=== PATIENT | female | born 1990 | race Caucasian/White ===

== ENCOUNTER 2020-07-31 10:21 | Outpatient (CLI) | payer OTHER, SELFPAY ==
--- NOTE | ~2020-07-31 | MR_ITS ---
EXAMINATION: MR brain/brain stem wo/w con DATE: 07/31/2020 11:43 INDICATION: Benign intracranial hypertension. Headache. TECHNIQUE: Magnetic resonance imaging (MRI) of the brain and brainstem was performed without and with 16 mL MultiHance intravenous contrast. Sequences included sagittal and axial T1-weighted FSE, axial diffusion-weighted FS EPI, axial T2*-weighted GRE, axial T2-weighted FLAIR Propeller, and axial T2-we ighted Propeller. Postcontrast sequences included axial and coronal T1-weighted FSE. Apparent diffusi on coefficient (ADC) maps were created. COMPARISON: None. FINDINGS: There is no intracranial hemorrhage, acute infarction, or abnormal intracranial mass lesion . The ventricles are normal in size. The paranasal sinuses are clear. The orbits are normal. The mast oid air cells are normal. IMPRESSION: 1. Normal brain. Reviewed, dictated and finalized at location A. IMPRESSION: 1. Normal brain.
[2020-07-31 10:50] LABS: Hematocrit 41.9 % (37.0-47.0); Hemoglobin 13.6 g/dL (12.0-15.0); Mean Corpuscular HGB Conc 32.5 g/dl (32-36); Mean Corpuscular Hemoglobin 27.5 pg (26-34); Mean Corpuscular Volume 84.6 fl (80-100); Mean Platelet Volume 9.3 fl (7.4-10.4); Platelet Count Result 252 k/mm3 (150-375); Red Blood Count 4.95 M/mm3 (4.2-5.4); Red Cell Distribution Width 13.2 % (11.5-14.5); White Blood Count 9.4 K/mm3 (4.5-10.0)
[2020-07-31 11:01] LABS: Alanine Aminotransferase 21 U/L (4-35); Albumin Level 4.2 g/dL (3.5-5.1); Alkaline Phosphatase 77 U/L (38-126); Anion Gap 9 mmol/L (8-16); Aspartate Amino Transferase 22 U/L (14-36); Bilirubin,Total < 0.1 mg/dL (0.2-1.3); Blood Urea Nitrogen 9 mg/dL (7-17); Carbon Dioxide 20 mmol/L (22-30); Chloride 112 mmol/L (98-107); Estimated Glomerular Filt Rate > 60; Glucose 143 mg/dL (65-105); Potassium 3.9 mmol/L (3.4-5.0); Sodium 141 mmol/L (137-145)
[2020-07-31 11:32] LABS: Thyroid Stimulating Hormone 0.374 uIU/mL (0.465-4.680)
[2020-07-31 11:34] LABS: Free T4 Free Thyroxine 0.68 ng/mL (0.78-2.19)
== END 2020-07-31 10:22 | disposition home or self-care (01) ==
PROVIDERS: Visit Provider Psychiatry & Neurology Neurology
DX: G93.2 Benign intracranial hypertension (principal)
CPT/HCPCS: 36415; 70553; 80053; 84439; 84443; 85027; A9577

== ENCOUNTER → 2021-06-10 02:22 | Outpatient (CLI) | payer OTHER, SELFPAY ==
[2021-06-10 16:44] LABS: SARS-CoV-2 RNA PCR Negative
== END ==
PROVIDERS: Visit Provider Radiology Diagnostic Radiology
DX: Z01.812 Encounter for preprocedural laboratory examination (principal); Z20.822 Contact with and (suspected) exposure to COVID-19
CPT/HCPCS: C9803; U0003; U0005

== ENCOUNTER 2021-06-13 08:47 | Outpatient (CLI) | payer OTHER, SELFPAY ==
[2021-06-04 15:38] VITALS: BMI 34.2
--- NOTE | 2021-06-04 15:50 | PC.NURSE ---
Report to the Outpatient Waiting Room, entrance under the green pavilion located off [facility], at time 0900 on date 06/13/21. OR Time: 1100. - You will be asked a series of questions to screen for COVID 19 for your protection. - A mask is required within the hospital. - No visitors are allowed at this time. Preoperative COVID Testing Requirements: COVID TEST 06/10 AT 0735 No COVID Test needed if: (proof is required; if not received patient will have Rapid Test prior to entry) - Patient has received COVID Vaccine at least 14 days prior to procedure date or - Patient has positive COVID test result within last 90 days of surgery date. COVID Test needed if above criteria is not met If not COVID vaccinated a COVID test must be conducted within 72 hours of surgery and patient is asked to isolate self from time of testing until procedure. You will go to the [facility] for your COVID testing. The [facility] site is located at the corner of [address] [facility]. You will only be called if COVID results are positive and your surgeon may reschedule your elective surgery date. - No food/DRINK FOR 6 HOURS PRIOR TO PROCEDURE Take the following medications with a SIP of water the morning of surgery: NONE Medications to discontinue per physician: N/A Date to take last dose: N/A Please no make-up, nail greek, hairspray, perfume, deodorant, or body powder the day of surgery. No jewelry (including any body piercings) or valuables the day of surgery, leave them at home. Please take a shower or bath the night before, or the morning of, surgery with an antibacterial soap. Wear comfortable, loose fitting clothing. - Jewelry must be removed prior to entering the operating room. Rings and piercings that are not removed may be cut off. - The hospital will not accept responsibility for valuables. - Please leave all valuables, including medications, at home the day of surgery. If you are going home after surgery, a licensed otr company driver must drive you home. - NO public transportation without another adult. - We recommend that an adult stay with you for 24 hours following discharge. - We also recommend that you do not drive, make important decision, drink alcoholic beverages, or take any drugs that were not prescribed by your health care provider for at least 24 hours after your discharge time. Follow any additional instructions given to you from your surgeon. Telephone instructions given to TATIANNA FREGOSO and asked if any additional questions and then verbalized understanding. Patient advised to call surgeon office or pre surgery nurse liaison [phone] if any additional questions.
--- NOTE | ~2021-06-13 | XR_ITS ---
EXAMINATION: XR lumbar puncture diagnostic DATE: 06/13/2021 11:11 INDICATION: Benign intracranial hypertension TECHNIQUE: The procedure including the risks and benefits was discussed with the patient. Risks discu ssed included spinal headache, cerebrospinal fluid leak, bleeding, and infection. The patient underst ood the risks and agreed to proceed. A timeout was performed to verify the patient's name, date of , and procedure to be performed. The skin overlying the L4-L5 level was prepped and draped in usual sterile fashion. Subcutaneous 1% lidocaine was used for local anesthesia. A 22 gauge spinal n eedle was advanced under fluoroscopic guidance. The needle was removed and the entry site was cleaned and dressed. There were no immediate complications. A total of 1 fluoroscopic image(s) were obtaine d. The amount of fluoroscopy time used during this procedure was 0.1 minutes. The patient was taken t o the nursing area for observation. FINDINGS: Real-time fluoroscopy demonstrates the needle at the L4-L5 level. Opening pressure was 21 c m water. (Normal range is variably defined as 6-20 cm water and up to 25 cm water in obese patients. Pressure >25 cm water is one of the modified Dandy criteria for idiopathic intracranial hypertension) . 14 mL of clear, colorless fluid was collected in 4 tubes. Closing pressure was 13.5 cm water. IMPRESSION: 1. Successful fluoro-guided lumbar puncture. Reviewed, dictated and finalized at location A. [employer]
[2021-06-13 09:08] VITALS: BP 115/66; PULSE 83; RESP 18; TEMP 37; O2SAT 97
[2021-06-13 09:36] LABS: Mean Platelet Volume 9.2 fl (7.4-10.4); Platelet Count Result 264 k/mm3 (150-375)
[2021-06-13 09:47] LABS: Prothrombin Time 12.9 Seconds (11.1-14.7)
[2021-06-13 11:05] VITALS: BP 109/63; PULSE 71; RESP 16; O2SAT 98
[2021-06-13 11:32] LABS: Glucose CSF 60 mg/dL (40-70); Total Protein CSF 32 mg/dL (12-60)
[2021-06-13 12:05] VITALS: BP 99/62; PULSE 80; RESP 16; O2SAT 99
[2021-06-13 12:47] VITALS: BP 106/66; PULSE 70; RESP 16; O2SAT 99
[2021-06-13 13:30] LABS: Appearance CSF Clear (Clear); CSF source CSF; Color CSF Colorless (Colorless); Nucleated Cell CSF 12 /uL (0-5); Red Blood Cell CSF 0 (0-2)
[2021-06-13 13:31] LABS: Lymphocytes CSF 69 % (40-80); Monocytes CSF 25 % (15-45)
--- NOTE | 2021-06-13 13:43 | SUR.PHASEII ---
DR. CARDONA CAME TO SEE PATIENT BEFORE SHE LEFT.
== END 2021-06-13 13:10 | disposition home or self-care (01) ==
PROVIDERS: Radiology Diagnostic Radiology; PCP Physician Assistant Surgical; Visit Provider Psychiatry & Neurology Neurology
PROC: 009U3ZZ Drainage of Spinal Canal, Percutaneous Approach (ICD-10-PCS; CPT 62328; principal; 2021-06-13 11:00)
DX: G93.2 Benign intracranial hypertension (principal)
CPT/HCPCS: 36415; 62328; 82945; 84157; 85049; 85610; 87102; 87206; 89051

== ENCOUNTER 2022-04-23 11:02 | Outpatient (CLI) | payer OTHER, SELFPAY ==
[2022-04-23 11:58] LABS: Basophils Percent Auto 0.6 % (0.2-1.2); Eosinophils Absolute Auto 0.2 K/mm3 (0-0.3); Eosinophils Percent Auto 2.3 % (0-4.4); Hematocrit 40.6 % (37.0-47.0); Hemoglobin 14.1 g/dL (12.0-15.0); Immature Granulocyte Absolute 0.02 K/mm3 (0.00-0.031); Immature Granulocyte Percent A 0.3 % (0-0.5); Lymphocytes Absolute Auto 2.89 K/mm3 (0.9-3.2); Lymphocytes Percent Auto 43.5 % (18.3-44.2); Mean Corpuscular HGB Conc 34.7 g/dl (32-36); Mean Corpuscular Hemoglobin 28.8 pg (26-34); Mean Corpuscular Volume 82.9 fl (80-100); Mean Platelet Volume 9.2 fl (7.4-10.4); Monocytes Absolute Auto 0.5 K/mm3 (0.1-0.6); Monocytes Percent Auto 7.8 % (2.6-8.5); Neutrophils Percent Auto 45.5 % (45.5-73.1); Platelet Count Result 240 k/mm3 (150-375); Red Cell Distribution Width 12.5 % (11.5-14.5); White Blood Count 6.6 K/mm3 (4.5-10.0)
[2022-04-23 13:01] LABS: Hepatitis B Surface Antigen Negative (Negative)
[2022-04-23 13:07] LABS: HAV RESULT Negative (Negative); Hepatitis B Core IgM Result Negative (Negative)
[2022-04-23 13:18] LABS: Hepatitis C Virus Antibody Negative (Negative)
[2022-04-23 13:32] LABS: HIV 1/2 Ab P24 Ag Result Negative (Negative)
[2022-04-23 15:57] LABS: Rapid Plasma Reagin Non-Reactive (NonReactive)
[2022-04-26 16:02] LABS: FSH 3.8 mIU/mL (***); Prolactin 5.2 ng/mL (***)
[2022-04-29 21:58] LABS: Estradiol, Ultrasensitive 62 pg/mL
[2022-05-03 09:06] LABS: Testosterone Free 2.4 pg/mL (0.1-6.4); Testosterone Total 12 ng/dL (2-45)
== END 2022-04-23 11:03 | disposition home or self-care (01) ==
LOC: ANHLAB 11:03
PROVIDERS: Visit Provider Obstetrics & Gynecology
DX: N93.9 Abnormal uterine and vaginal bleeding, unspecified (principal); Z11.3 Encounter for screening for infections with a predominantly sexual mode of transmission
CPT/HCPCS: 36415; 80074; 82670; 83001; 84144; 84146; 84402; 84403; 85025; 86592; 86695; 86696; 86703; G0432

== ENCOUNTER 2022-09-04 09:19 | Outpatient (CLI) | payer OTHER, SELFPAY ==
[2022-09-04 09:53] LABS: Anion Gap 6 mmol/L (8-16); Blood Urea Nitrogen 12 mg/dL (7-17); Calcium 8.9 mg/dL (8.4-10.2); Carbon Dioxide 31 mmol/L (22-30); Chloride 102 mmol/L (98-107); Estimated Glomerular Filt Rate > 60; Glucose 99 mg/dL (65-110); Potassium 4.1 mmol/L (3.4-5.0); Sodium 139 mmol/L (137-145)
== END 2022-09-04 09:20 | disposition home or self-care (01) ==
LOC: ANHSURGERY 09:26
PROVIDERS: Anesthesiology; Visit Provider Obstetrics & Gynecology
DX: G93.2 Benign intracranial hypertension (principal); Z01.818 Encounter for other preprocedural examination
CPT/HCPCS: 36415; 80048

== ENCOUNTER 2022-09-07 01:37 | Day surgery (SDC) | payer OTHER, SELFPAY ==
[2022-08-31 14:37] VITALS: BMI 34.2
--- NOTE | 2022-08-31 14:45 | PC.NURSE ---
Report to the Outpatient Waiting Room, entrance under the green pavilion located off [facility], at time 0600_ on date 09/07/22_. Planned Procedure Time: 0730__. Time changes happen often and if your time is changed the preop area will call you the afternoon before. - You and your visitor will be asked to self-screen and do not enter if you have any COVID symptoms. - A mask is optional within the hospital at this time. Patients may have clear liquids (water, carbonated beverages, clear teas, apple juice) until 3 hours prior to surgery with a maximum of 20 ounces. - No food from midnight until time of surgery - Infants may have breast milk until 4 hours before surgery, formula 6 hours prior to surgery. - Children will be allowed to drink immediately following surgery. If applicable, please bring a bottle or sippy cup to assist with drinking. Juice, water, soda, and popsicles are readily available. For infants on formula, please bring formula the day of surgery. Pacifiers are allowed. Take the following medications with a SIP of water the morning of surgery: NONE DO NOT STOP ANY OF YOUR OTHER PRESCRIPTION MEDICATIONS PRIOR TO SURGERY ?EXCEPT THE FOLLOWING Medications to discontinue per physician NONE Date to take last dose Please no make-up, nail puerto rican, hairspray, perfume, deodorant, or body powder the day of surgery. No jewelry (including any body piercings) or valuables the day of surgery, leave them at home. Please take a shower or bath the night before, or the morning of, surgery with an antibacterial soap. Wear comfortable, loose fitting clothing. Children are encouraged to wear pajamas. - Jewelry must be removed prior to entering the operating room. Rings and piercings that are not removed may be cut off. - The hospital will not accept responsibility for valuables. - Please leave all valuables, including medications, at home the day of surgery. If you are going home after surgery, a licensed diesel truck driver must drive you home. - NO public transportation without another adult if you receive anesthesia. - We recommend that an adult stay with you for 24 hours following discharge. - We also recommend that you do not drive, make important decision, drink alcoholic beverages, or take any drugs that were not prescribed by your health care provider for at least 24 hours after your discharge time. For Pediatric surgeries, we recommend two adults accompany the child home. Follow any additional instructions given to you from your surgeon. If you or anyone in your household have experienced Covid symptoms in the past week, please notify your surgeon or the nurse liaison at the phone number below for possible testing. Telephone instructions given to PATIENT and asked if any additional questions and then verbalized understanding. Patient advised to call surgeon office or pre surgery nurse liaison [phone] if any additional questions.
--- NOTE | 2022-09-04 16:09 | WPDANESEPPF ---
Anes - Initial Pre Proc Eval Procedure: Operation Date: 09/07/22 07:30 Proposed Procedures p Hysteroscopy, Dilation and Curettage with Susanna Endometrial Ablation - Josseline Bay MD Date/Time: 09/04/22 16:09 Surgeon: Josseline Bay MD Pre Op Diagnosis: Abnormal Uterine Bleeding Patient Data Age: 31 Gender: F Height: 1.57 m Weight: 85 kg Allergies Allergy/AdvReac Type Severity Reaction Status Date / Time No Known Allergies Allergy Verified 09/07/22 06:12 Home Medications Medication Instructions Recorded Confirmed Type furosemide 20 mg tablet 20 mg PO DAILY 05/28/21 09/01/22 History losartan 50 mg-hydrochlorothiazide 2 tablet PO DAILY 05/28/21 09/01/22 History 12.5 mg tablet potassium chloride 20 mEq 40 meq PO BID 05/28/21 09/01/22 History tablet,extended release venlafaxine 75 mg capsule,extended 75 mg PO DAILY 04/13/22 09/01/22 History release 24 hr (Effexor XR) acetaminophen 650 mg 650 mg PO Q8H PRN pain #90 tabs 06/08/22 09/01/22 Rx tablet,extended release (Tylenol 8 Hour) metformin 500 mg tablet,extended 500 mg PO DAILY 08/31/22 08/31/22 History release 24 hr Patient hx anesthesia problems: none Family hx anesthesia problems: none Results Review: All pre-operative results and documents have been reviewed as part of the pre-operative evaluation. [facility] Past Medical History Medical History (Updated 09/07/22 @ 06:57 by Michael Bryan MD) Depression Engages in vaping Hypertension Obesity Pseudotumor cerebri Screen for sexually transmitted diseases Vaginitis Surgical History Surgical History History of tubal ligation Previous section x4 Social History Social History Social History: former smoker Smoking packs per day: 0.5 Smoking cigarettes per day: 10.0 Years smoked: 12 Smoking pack-years: 6.00 Smoking status: Former smoker Tobacco type: e-cigarettes/vaping Additional smoking assessment comments: VAPES 5TIMES PER DAY, SIX MONTH Alcohol intake: former Substance use: former Substance use type: methamphetamine Other substance usage details: STOPPED 4YRS AGO Lack of Transportation: No Lack of Food: Never True Current Housing: I Have Housing Concerned About Future Housing: No Difficulty Paying Gas/Electric Bills: No Difficulty Paying for Meds: No Currently Unemployed: No Education: High School Diploma/GED Difficulty w/ Childcare or Family Care: No Living arrangements: alone Occupation/Education: occupation 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 Gender identity (if verbalized by the patient): Female Sexual Orientation (if Verbalized by the Patient): Straight or Heterosexual Spiritual care concerns: No Anes - Eval Final PreProcedure Day of Procedure 09/04/22 16:09 Patient weight: obese Heart: regular rate and rhythm Lungs: clear to auscultation and normal air movement Airway: Mallampati scale class II Neurological: alert and oriented Last oral intake: >/= 8 hours ASA classification: III Emergent: no Anesthetic plan: proceed Anesthesia type and monitoring: general GIVS Results Review: All pre-operative results and documents have been reviewed as part of the pre-operative evaluation. Informed Consent: The patient's anesthetic plan and its attendant risks and benefits were discussed with the patient/family/POA. Questions were solicited and answers provided to the satisfaction of the patient/family/POA.
--- NOTE | 2022-09-06 20:02 | PM.IMHP ---
H&P: HPI History of Present Illness Date/Time: 09/06/22 20:02 Chief Complaint: AUB Narrative: Savana is a 31yo [id number], who presents for AUB. She reports having a lot of abnormal spotting on and off since having her tubal in August 2021. She reports a lot of brown spotting; no pain. She was on OCPs until her tubal; has a h/o x4. She denies pelvic pain. She wants to proceed with endometrial ablation. Review of Systems Constitutional: Constitutional: Denies chills, Denies fever(s) and Denies headache(s) Eyes: Eyes: Denies change in vision ENT: Denies dizziness and Denies headache(s) Cardiovascular: Cardiovascular: Denies chest pain and Denies dyspnea Respiratory: Respiratory: Denies cough and Denies dyspnea Gastrointestinal: Gastrointestinal: Denies abdominal pain and Denies change in stool character Genitourinary: Genitourinary: Reports abnormal menses, Reports metrorrhagia, Denies pelvic pain, Denies vaginal discharge, Denies vaginal odor and Denies vaginal pruritus Neurologic: Denies dizziness and Denies headache(s) Psychiatric: Psychiatric: Denies anxiety and Denies depression PMFSH Past Medical History Medical History (Updated 09/04/22 @ 16:10 by Michael Bryan MD) Depression Hypertension Obesity Pseudotumor cerebri Screen for sexually transmitted diseases Vaginitis Surgical History Surgical History History of tubal ligation Previous section x4 Social History Social History Social History: former smoker Smoking packs per day: 0.5 Smoking cigarettes per day: 10.0 Years smoked: 12 Smoking pack-years: 6.00 Smoking status: Former smoker Tobacco type: e-cigarettes/vaping Additional smoking assessment comments: VAPES 5TIMES PER DAY, SIX MONTH Alcohol intake: former Substance use: former Substance use type: methamphetamine Other substance usage details: STOPPED 4YRS AGO Lack of Transportation: No Lack of Food: Never True Current Housing: I Have Housing Concerned About Future Housing: No Difficulty Paying Gas/Electric Bills: No Difficulty Paying for Meds: No Currently Unemployed: No Education: High School Diploma/GED Difficulty w/ Childcare or Family Care: No Living arrangements: alone Occupation/Education: occupation 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 Gender identity (if verbalized by the patient): Female Sexual Orientation (if Verbalized by the Patient): Straight or Heterosexual Spiritual care concerns: No Meds Home Medications and Allergies Home Medications Medication Instructions Recorded Confirmed Type furosemide 20 mg tablet 20 mg PO DAILY 05/28/21 09/01/22 History losartan 50 mg-hydrochlorothiazide 2 tablet PO DAILY 05/28/21 09/01/22 History 12.5 mg tablet potassium chloride 20 mEq 40 meq PO BID 05/28/21 09/01/22 History tablet,extended release venlafaxine 75 mg capsule,extended 75 mg PO DAILY 04/13/22 09/01/22 History release 24 hr (Effexor XR) acetaminophen 650 mg 650 mg PO Q8H PRN pain #90 tabs 06/08/22 09/01/22 Rx tablet,extended release (Tylenol 8 Hour) metformin 500 mg tablet,extended 500 mg PO DAILY 08/31/22 08/31/22 History release 24 hr Allergies Allergy/AdvReac Type Severity Reaction Status Date / Time No Known Allergies Allergy Verified 08/31/22 14:33 Exam Const: General: cooperative, healthy appearing, comfortable and no acute distress Orientation/consciousness: patient oriented x3 Resp: Effort & Inspection: normal respiratory effort Cardio: Rate: regular rate GI: Inspection: normal to inspection GI Palp: No abdominal tenderness and Yes Soft to palpation : Other: deferred to OR Skin: General skin exam: normal color Neuro: General: patient oriented x3 Extrem: General: normal to inspection Psych: Appearance: monica
[2022-09-07 05:55] VITALS: BP 115/70; PULSE 78; RESP 14; TEMP 36.4; O2SAT 98; BMI 34.2
[2022-09-07] MEDS: LACTATED RINGERS 1,000 ML 30 ML IV CONT (06:20)
[2022-09-07] MEDS: ACETAMINOPHEN 500 MG TABLET 1000 MG PO (06:22)
--- NOTE | 2022-09-07 07:02 | WPDHPUPDATE1 ---
History and Physical Update Update Date/Time: 09/07/22 07:02 History and Physical has been reviewed, including an updated exam of the patient. There are NO changes in the patient's condition. Risks, benefits, and alternatives have been discussed and questions answered. Patient agrees to proceed with procedure.
[2022-09-07] MEDS: KETOROLAC 30 MG/ML VIAL (*BKC) IV PUSH (07:45)
--- NOTE | 2022-09-07 08:06 | W.PM.PROC2 ---
Procedure Note - Detailed Date of Procedure 09/07/22 Pre-op Diagnosis Abnormal Uterine Bleeding Post-op Diagnosis Same Procedure Performed Hysteroscopy, D&C, with Susanna endometrial ablation Surgeon Josseline Bay MD Anesthesia MAC Findings Uterus 10.5cm, cervix 5.5cm. Cervical stenosis noted. Normal uterine cavity without masses; bilateral tubal ostia visualized. Description of Procedure Savana was taken to the operating room where she was placed under sedation without complications. She was then prepped and draped in the usual sterile fashion in the dorsal lithotomy position with her legs in low Sree stirrups. A time-out was performed and no perioperative antibiotics were indicated. A bivalve speculum was placed within the vagina where the cervix was easily identified. The anterior lip of the cervix was grasped with a single-tooth tenaculum. The cervix was then serially dilated to allow for the hysteroscope. The hysteroscope was advanced into the uterine cavity with the above findings noted. A curettage was then performed until a good uterine cry was felt throughout the uterus. The Susanna endometrial ablation device was then placed within the uterine cavity. The test procedure passed and the ablation was performed without issue. The device was removed from the cavity. Good hemostasis was noted. All instruments were removed from the vagina. Sponge, lap, instrument, and needle counts were correct at the end of the procedure. Patient was awoken from anesthesia and taken to recovery with plans of same-day discharge home. Estimated Blood Loss 5 IV Fluids 600 (Fluid deficit: 60ml) Pathology Yes Complications No immediate complications Condition Stable Disposition Same day [facility] Billing Surgery - Charge Forward: Surgery Billing
[2022-09-07 08:07] VITALS: BP 98/57; PULSE 86; RESP 14; O2SAT 92
[2022-09-07 08:30] VITALS: BP 100/56; PULSE 82; RESP 20
[2022-09-07 09:00] VITALS: BP 109/74; PULSE 72; RESP 20
== END 2022-09-07 09:10 | disposition home or self-care (01) ==
PROVIDERS: Visit Provider Obstetrics & Gynecology
PROC: 0U5B8ZZ Destruction of Endometrium, Via Natural or Artificial Opening Endoscopic (ICD-10-PCS; CPT 58563; principal; 2022-09-07 07:30)
DX: N93.9 Abnormal uterine and vaginal bleeding, unspecified (principal); N88.2 Stricture and stenosis of cervix uteri; I10 Essential (primary) hypertension; F32.A Depression, unspecified; G93.2 Benign intracranial hypertension; F17.290 Nicotine dependence, other tobacco product, uncomplicated; E66.9 Obesity, unspecified; Z68.34 Body mass index [BMI] 34.0-34.9, adult
CPT/HCPCS: 58563; 88305; A9270; J1885; J2250; J2704; J3010; J7120